=== PATIENT | female | born 1965 | race Caucasian/White ===

== ENCOUNTER 2018-11-21 12:19 | Emergency (ER) | payer OTHER ==
[2018-11-21 12:26] VITALS: TEMP 97.6; O2SAT 100
[2018-11-21] MEDS ORDERED: Iohexol 240 (50 ml) PO STA (13:08)
[2018-11-21] MEDS ORDERED: Sodium Chloride 0.9% 1,000 ML IV ONE (13:08)
[2018-11-21] MEDS ORDERED: Iohexol 240 (50 ml) ONE (13:18)
--- NOTE | 2018-11-21 13:18 | C.PDOC ---
History Of Present Illness 53 y/o female presents to the ER complaining of left sided lower abdominal pain which has been present for the 2 months. Patient states that she decided to come to the ER because the pain has become worse over the past few days. Patient states that she was evaluated by her PMD. Denies having fever, chills, nausea, vomiting, diarrhea, constipation, dysuria, and hematuria. Time Seen by Provider: 11/21/18 12:52 Chief Complaint (Nursing): Abdominal Pain History Per: Patient History/Exam Limitations: no limitations Onset/Duration Of Symptoms: Days Current Symptoms Are (Timing): Still Present Severity: Moderate Past Medical History Reviewed: Historical Data, Nursing Documentation, Vital Signs Vital Signs: Last Vital Signs Temp 97.6 F 11/21/18 12:23 Pulse 62 11/21/18 12:23 Resp 18 11/21/18 12:23 BP 127/82 11/21/18 12:23 Pulse Ox 100 11/21/18 12:23 - Medical History PMH: No Chronic Diseases Surgical History: No Surg Hx Family History: States: No Known Family Hx - Social History Hx Tobacco Use: No Hx Alcohol Use: No Hx Substance Use: No - Immunization History Hx Tetanus Toxoid Vaccination: No Hx Influenza Vaccination: No Hx Pneumococcal Vaccination: No Review Of Systems Except As Marked, All Systems Reviewed And Found Negative. Constitutional: Negative for: Fever, Chills Gastrointestinal: Positive for: Abdominal Pain. Negative for: Nausea, Vomiting, Diarrhea, Constipation Genitourinary: Negative for: Dysuria, Hematuria Physical Exam - Physical Exam Appears: Non-toxic, No Acute Distress Skin: Normal Color, Warm, Dry Head: Atraumatic, Normacephalic Eye(s): bilateral: Normal Inspection Nose: Normal Oral Mucosa: Moist Neck: Supple Chest: Symmetrical Cardiovascular: Rhythm Regular Respiratory: Normal Breath Sounds, No Rales, No Rhonchi, No Wheezing Gastrointestinal/Abdominal: Soft, No Tenderness, No Guarding, No Rebound Neurological/Psych: Oriented x3, Normal Speech ED Course And Treatment - Laboratory Results Result Diagrams: 11/21/18 13:19 11/21/18 13:19 Lab Interpretation: Normal O2 Sat by Pulse Oximetry: 100 (RA) Pulse Ox Interpretation: Normal - Other Rad No standard instances X-Ray: Viewed By Me, Read By Radiologist Interpretation: FINDINGS: LOWER THORAX: No visible consolidation, pleural effusion, or pneumothorax. LIVER: Hepatomegaly. GALLBLADDER AND BILE DUCTS: Unremarkable. PANCREAS: Unremarkable. SPLEEN: Borderline splenomegaly. ADRENALS: Unremarkable. KIDNEYS AND URETERS: The kidneys enhance symmetrically. Mild right-sided hydronephrosis without obstructing calculus identified. BLADDER: The urinary bladder appears unremarkable. REPRODUCTIVE: Uterus is present. APPENDIX: The appendix appears within normal limits of caliber. No secondary signs of acute appendicitis. BOWEL: The stomach is nondistended. The bowel loops appear within normal limits of caliber without evidence of intestinal obstruction. PERITONEUM: No significant free fluid. No definite free air. LYMPH NODES: No bulky lymphadenopathy identified. VASCULATURE: No aortic aneurysm. Atherosclerotic calcifications. BONES: Mild degenerative changes. OTHER FINDINGS: None. IMPRESSION: Mild right-sided hydronephrosis. No obstructing calculus identified. Hepatomegaly. Borderline splenomegaly. Progress Note: Treated with IVF NSS. On re-evaluation abdomen soft in no distress Reassessment Condition: Improved Medical Decision Making Medical Decision Making: Plan: --Labs --UA --CT - Abd & Pelv. 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 - Scribe Statement The provider has reviewed the documentation as recorded by the Jayleen Vogel Provider Attestation All medical record entries made by the Moreibtejinder were at my direction and personally dictated by me. I have reviewed the chart and agree that the record accurately reflects my personal performance of the history, physical exam, medical decision making, and the department course for this patient. I have also personally directed, reviewed, and agree with the discharge instructions and disposition.
[2018-11-21] MEDS ORDERED: Sodium Chloride 0.9% 1,000 ML ONE (13:19)
[2018-11-21 13:43] LABS: HCG,QUALITATIVE URINE NEGATIVE (NEGATIVE)
[2018-11-21 13:44] LABS: BASO % 0.4 % (0.0-2.0); EOS % 0.7 % (0.0-4.0); HEMOGLOBIN 14.6 g/dL (11.0-16.0); LYMPH # 2.4 K/uL (1.0-4.3); LYMPH % 54.2 % (20.0-40.0); MEAN CELL VOLUME 86.4 fL (81.0-99.0); MEAN CORPUSCULAR HEMOGLOBIN 29.2 pg (27.0-31.0); MEAN CORPUSCULAR HGB CONC 33.8 g/dL (33.0-37.0); MEAN PLATELET VOLUME 13.1 fL (7.2-11.7); MONO # 0.2 K/uL (0.0-0.8); MONO % 4.4 % (0.0-10.0); NEUT # 1.8 K/uL (1.8-7.0); NEUT % 40.3 % (50.0-75.0); NRBC % 0.1 % (0.0-2.0); RBC 5.01 Mil/uL (3.80-5.20); RED CELL DISTRIBUTION WIDTH 13.3 % (11.5-14.5); WHITE BLOOD COUNT 4.5 K/uL (4.8-10.8)
[2018-11-21 13:46] LABS: SQUAMOUS EPITHIAL 1 /hpf (0-5); URINE BILIRUBIN NEGATIVE (NEGATIVE); URINE BLOOD NEGATIVE (NEGATIVE); URINE CLARITY Clear (Clear); URINE COLOR Straw (YELLOW); URINE GLUCOSE (UA) NORMAL (Normal); URINE LEUKOCYTE ESTERASE NEG Leu/uL (Negative); URINE PROTEIN NEGATIVE (NEGATIVE); URINE UROBILINOGEN NORMAL mg/dL (0.2-1.0)
[2018-11-21 13:47] LABS: ALB/GLOB RATIO 1.3 (1.0-2.1); ALBUMIN 4.9 g/dL (3.5-5.0); ALT/SGPT 23 U/L (9-52); AST/SGOT 28 U/L (14-36); BLOOD UREA NITROGEN 18 mg/dL (7-17); CALCIUM 9.5 mg/dl (8.6-10.4); GFR NON-AFRICAN AMERICAN > 60; LIPASE 49 U/L (23-300)
[2018-11-21] MEDS ORDERED: Iodixanol 320 MG/ML 100 ML BOTTLE IV ONE (14:43)
--- NOTE | 2018-11-21 16:26 | CT ---
PROCEDURE: CT Abdomen and Pelvis with oral and IV contrast. HISTORY: pain COMPARISON: None. TECHNIQUE: Contiguous axial images of the abdomen and pelvis. Oral and IV contrast was administered. Coronal and Sagittal reformats generated and reviewed. Contrast dose: 100 mL Visipaque 320 IV Radiation dose: Total exam DLP = 617.52 mGy-cm. This CT exam was performed using one or more of the following dose reduction techniques: Automated exposure control, adjustment of the mA and/or kV according to patient size, and/or use of iterative reconstruction technique. FINDINGS: LOWER THORAX: No visible consolidation, pleural effusion, or pneumothorax. LIVER: Hepatomegaly. GALLBLADDER AND BILE DUCTS: Unremarkable. PANCREAS: Unremarkable. SPLEEN: Borderline splenomegaly. ADRENALS: Unremarkable. KIDNEYS AND URETERS: The kidneys enhance symmetrically. Mild right-sided hydronephrosis without obstructing calculus identified. BLADDER: The urinary bladder appears unremarkable. REPRODUCTIVE: Uterus is present. APPENDIX: The appendix appears within normal limits of caliber. No secondary signs of acute appendicitis. BOWEL: The stomach is nondistended. The bowel loops appear within normal limits of caliber without evidence of intestinal obstruction. PERITONEUM: No significant free fluid. No definite free air. LYMPH NODES: No bulky lymphadenopathy identified. VASCULATURE: No aortic aneurysm. Atherosclerotic calcifications. BONES: Mild degenerative changes. OTHER FINDINGS: None. IMPRESSION: Mild right-sided hydronephrosis. No obstructing calculus identified. Hepatomegaly. Borderline splenomegaly.
[2018-11-21 16:48] VITALS: BP 132/81; PULSE 61; RESP 16
== END 2018-11-21 17:15 | disposition home or self-care (01) ==
LOC: C.ER 12:19
DX: R10.32 Left lower quadrant pain (principal)
CPT/HCPCS: 74177; 80053; 81001; 83690; 84703; 85025; 96374; 99284; J1885; J7030; Q9966; Q9967